=== PATIENT | male | born 1995 | race Caucasian/White ===

== ENCOUNTER 2021-08-28 07:40 | Emergency (ER) | payer SELFPAY ==
[2021-08-28] MEDS ORDERED: LIDOCAINE 1% MPF 5 ML VIAL ONE (09:53)
[2021-08-28] MEDS ORDERED: HYDROCODONE/APAP 10/325 TAB ONE (09:53)
[2021-08-28] MEDS ORDERED: BUPIVACAINE 0.5% PF 10 ML VIAL ONE (09:54)
[2021-08-28] MEDS ORDERED: TETANUS & DIPHTHERIA TOX,ADULT 0.5 ML VIAL ONE (09:54)
--- NOTE | 2021-08-28 11:47 | ER ---
Nurse's Notes [facility] Name: Dewayne Allred Age: 25 yrs Sex: Male : 1995 Arrival Date: 08/28/2021 Time: 07:45 Bed 12 Private MD: Diagnosis: Ingrowing nail-left great toe Presentation: 08/28 08:19 Chief complaint: Patient states: left great toe has had ingrown toe nail X 4 months, iw got worse over past 2 days. Coronavirus screen: At this time, the client does not indicate any symptoms associated with coronavirus-19. Ebola Screen: Patient negative for fever greater than or equal to 101.5 degrees Fahrenheit, and additional compatible Ebola Virus Disease symptoms Patient denies exposure to infectious person. Patient denies travel to an Ebola-affected area in the 21 days before illness onset. No symptoms or risks identified at this time. Initial Sepsis Screen: Does the patient meet any 2 criteria? No. Patient's initial sepsis screen is negative. Does the patient have a suspected source of infection? No. Patient's initial sepsis screen is negative. Risk Assessment: Do you want to hurt yourself or someone else? Patient reports no desire to harm self or others. 08:19 Method Of Arrival: Ambulatory iw 08:19 Acuity: DARRYL 4 iw 09:00 Onset of symptoms was August 28, 2021. iw Triage Assessment: 09:00 General: Appears in no apparent distress. Behavior is calm, cooperative. iw Historical: - Allergies: 08:20 No Known Allergies; iw - Home Meds: 08:20 None [Active]; iw - PMHx: 08:20 None; iw Screenin:00 Abuse screen: Denies threats or abuse. Denies injuries from another. Nutritional iw screening: No deficits noted. Tuberculosis screening: No symptoms or risk factors identified. Fall Risk None identified. Assessment: 09:00 General: Appears in no apparent distress. Behavior is calm, cooperative. Pain: iw Complains of pain in left foot and left first toe. Neuro: Level of Consciousness is awake, alert, obeys commands, Oriented to person, place, time, situation, Moves all extremities. Full function. Cardiovascular: Patient's skin is warm and dry. Derm: Musculoskeletal: Range of motion: intact in all extremities. Vital Signs: 08:19 BP 143 / 84; Pulse 61; Resp 16; Temp 97.4; Pulse Ox 96% on R/A; Weight 136.08 kg; iw Height 6 ft. 1 in. (185.42 cm); 08:19 Body Mass Index 39.58 (136.08 kg, 185.42 cm) ED Course: 07:45 Patient arrived in ED. ds1 08:20 Triage completed. iw 08:20 Dorothea Guerrero RN is Primary Nurse. iw 08:21 Toney Aguila NP is PHCP. pm1 08:21 Ze Gil MD is Attending Physician. pm1 09:00 Patient has correct armband on for positive identification. iw 09:00 Arm band placed on. iw 11:00 Assist provider with nail repair of ingrown nail of left great toe using excision of iw nail. Set up for procedure. Performed by Toney Aguila SENIOR SYSTEMS ARCHITECT Dressed with 4X4s, Neosporin tube gauze Patient tolerated well. 11:46 Efra Healy DPM is Referral Physician. pm1 12:00 Patient did not have IV access during this emergency room visit. ld1 Administered Medications: 09:59 Drug: Tetanus-Diphtheria Toxoid Adult 0.5 ml {Bite Block Maker: [employer]. Exp: iw 02/10/2023. Lot #: [id number]. } Route: IM; Site: right deltoid; 10:15 Follow up: Response: No adverse reaction iw 09:59 Drug: Carlton (HYDROcodone-acetaminophen) 10 mg-325 mg 1 tabs Route: PO; iw 11:38 Follow up: Response: No adverse reaction ld1 11:38 Drug: Lidocaine (1 %) 5 ml {Note: Administered by Toney Aguila NP..} Volume: 5 ml; ld1 Route: Infiltration; Outcome: 11:46 Discharge ordered by . pm1 11:59 Discharged to home ambulatory. ld1 11:59 Condition: stable 11:59 Discharge instructions given to patient, Instructed on discharge instructions, follow up and referral plans. medication usage, Demonstrated understanding of instructions, follow-up care, medications, Prescriptions given X 3. 12:00 Patient left the ED. ld1 Signatures: Gracie Brandt ds1 Dorothea Guerrero RN RN Toney Aguila NP SENIOR SYSTEMS ARCHITECT pm1 Leigh Brown RN RN ld1 Corrections: (The following items were deleted from the chart) 11:38 11:38 Lidocaine (1 %) 5 ml 5 ml Infiltration 5 ml ld1 ld1
--- NOTE | 2021-08-28 11:47 | EDPHYS ---
Physician Documentation [facility] Name: Dewayne Allred Age: 25 yrs Sex: Male : 1995 Arrival Date: 08/28/2021 Time: 07:45 Bed 12 Private MD: ED Physician Ze Gil HPI: 08/28 09:40 This 25 yrs old Male presents to ER via Ambulatory with complaints of Toe Pain. pm1 09:40 The patient presents with pain, that is acute, swelling, tenderness. The complaints pm1 affect the left foot. Context: The problem was sustained at an unknown location, resulted from an unknown cause, the patient is able to ambulate. Onset: The symptoms/episode began/occurred A few months ago, worse the past three days. Modifying factors: The symptoms are alleviated by nothing, the symptoms are aggravated by wearing shoes. Associated signs and symptoms: Pertinent negatives: fever. Severity of symptoms: in the emergency department the symptoms are actually worse. The patient has not experienced similar symptoms in the past. The patient has not recently seen a physician. Historical: - Allergies: 08:20 No Known Allergies; iw - Home Meds: 08:20 None [Active]; iw - PMHx: 08:20 None; iw ROS: 09:40 MS/extremity: Positive for pain, swelling, tenderness, of the left first toe. pm1 09:40 Constitutional: Negative for fever, chills, and weight loss. 09:40 Cardiovascular: Negative for chest pain, palpitations, and edema, Respiratory: Negative for shortness of breath, cough, wheezing, and pleuritic chest pain, Abdomen/GI: Negative for abdominal pain, nausea, vomiting, diarrhea, and constipation. 09:40 Neuro: Negative for headache, weakness, numbness, tingling, and seizure. 09:40 Skin: Positive for swelling, of the left first toe. 09:40 All other systems are negative. Exam: 09:40 Constitutional: This is a well developed, well nourished patient who is awake, alert, pm1 and in no acute distress. Head/Face: Normocephalic, atraumatic. 09:40 Cardiovascular: Exam negative for acute changes, Rate: normal, Rhythm: regular, Pulses: no pulse deficits are appreciated. 09:40 Respiratory: Exam negative for acute changes, respiratory distress, shortness of breath. 09:40 Skin: Appearance: normal except for affected area, granulation of tissue to the left of toe nail left great toe. 09:40 Neuro: Exam negative for acute changes, Orientation: is normal, Mentation: is normal, Motor: is normal, moves all fours. Vital Signs: 08:19 BP 143 / 84; Pulse 61; Resp 16; Temp 97.4; Pulse Ox 96% on R/A; Weight 136.08 kg; iw Height 6 ft. 1 in. (185.42 cm); 08:19 Body Mass Index 39.58 (136.08 kg, 185.42 cm) iw MDM: 08:21 Patient medically screened. pm1 11:45 Data reviewed: vital signs. Data interpreted: Pulse oximetry: on room air is 96 %. pm1 Interpretation: normal. Counseling: I had a detailed discussion with the patient and/or guardian regarding: the historical points, exam findings, and any diagnostic results supporting the discharge/admit diagnosis, the need for outpatient follow up, a construction framer, to return to the emergency department if symptoms worsen or persist or if there are any questions or concerns that arise at home. 11:52 ED course: [place] reviewed. pm1 08/28 09:40 Order name: Dressing - Wound; Complete Time: 11:39 pm1 08/28 09:40 Order name: Gloves, Sterile; Complete Time: 11:38 pm1 08/28 09:40 Order name: Setup Suture Tray; Complete Time: 11:38 pm1 08/28 11:45 Order name: Post-op shoe; Complete Time: 11:57 pm1 Administered Medications: 09:59 Drug: Tetanus-Diphtheria Toxoid Adult 0.5 ml {Traffic Sign Erection Supervisor: [employer]. Exp: iw 02/10/2023. Lot #: [id number]. } Route: IM; Site: right deltoid; 10:15 Follow up: Response: No adverse reaction iw 09:59 Drug: Beatrice (HYDROcodone-acetaminophen) 10 mg-325 mg 1 tabs Route: PO; iw 11:38 Follow up: Response: No adverse reaction ld1 11:38 Drug: Lidocaine (1 %) 5 ml {Note: Administered by Toney Aguila SOIL SAMPLER..} Volume: 5 ml; ld1 Route: Infiltration; Disposition: 08/29 08:22 Co-signature as Attending Physician, Ze Gil MD I agree with the assessment and chase plan of care. Disposition Summary: 08/28/21 11:46 Discharge Ordered Location: Home pm1 Problem: new pm1 Symptoms: have improved pm1 Condition: Stable pm1 Diagnosis - Ingrowing nail - left great toe pm1 Followup: pm1 - With: Emergency Department - When: As needed - Reason: Worsening of condition Followup: pm1 - With: Private Physician - When: 2 - 3 days - Reason: Recheck today's complaints, Continuance of care, Re-evaluation by your physician Followup: pm1 - With: Efra Healy DPM - When: 2 - 3 days - Reason: Recheck today's complaints, Continuance of care, Re-evaluation by your physician Discharge Instructions: - Discharge Summary Sheet pm1 - Ingrown Toenail pm1 - Fingernail or Toenail Removal, Adult pm1 Forms: - Medication Reconciliation Form pm1 - Thank You Letter pm1 - Antibiotic Education pm1 - Prescription Opioid Use pm1 - Work release form pm1 Prescriptions: - acetaminophen-codeine 300-15 mg Oral tablet - take 2 tablet by ORAL route every 6 hours As needed as needed; 20 tablet; pm1 Refills: 0, Product Selection Permitted - Cephalexin 500 mg Oral Capsule - take 1 capsule by ORAL route every 6 hours for 10 days; 40 capsule; Refills: 0, pm1 Product Selection Permitted - Bactrim DS 800-160 mg Oral Tablet - take 1 tablet by ORAL route every 12 hours for 10 days; 20 tablet; Refills: 0, pm1 Product Selection Permitted Signatures: Ze Gil MD MD cha Williams, Irene, Toney Pierre RN, NP SOIL SAMPLER pm1 Leigh Brown RN RN ld1
[2021-08-28 12:07] VITALS: BP 143/84; TEMP 97.4; O2SAT 96
== END 2021-08-28 12:00 | disposition home or self-care (01) ==
LOC: ER 07:40
PROC: 0HBRXZZ Excision of Toe Nail, External Approach (ICD-10-PCS; principal; 2021-08-28)
DX: L60.0 Ingrowing nail (principal); Z23 Encounter for immunization
CPT/HCPCS: 90471; 90714; 99283

== ENCOUNTER 2023-08-24 18:09 | Emergency (ER) | payer SELFPAY ==
[2023-08-24 19:34] LABS: SARS-COV-2 RT PCR NEGATIVE (NEGATIVE)
--- NOTE | 2023-08-24 19:49 | ER ---
Nurse's Notes [facility] Name: Dewayne Allred Age: 27 yrs Sex: Male : 1995 Arrival Date: 08/24/2023 Time: 18:09 Bed IW2 Private MD: Diagnosis: Influenza due to identified novel influenza A virus-flu b Presentation: 08/24 18:30 Chief complaint: Patient states: fever, chills, headache, cough, congestion x 4 days. ko1 Coronavirus screen: chills, congestion, cough unrelated to allergies, headache, Client presents with at least one sign or symptom that may indicate coronavirus-19. Standard/surgical mask placed on the client. Ebola Screen: No symptoms or risks identified at this time. Initial Sepsis Screen: Does the patient meet any 2 criteria? No. Patient's initial sepsis screen is negative. Does the patient have a suspected source of infection? No. Patient's initial sepsis screen is negative. Risk Assessment: Do you want to hurt yourself or someone else? Patient reports no desire to harm self or others. Onset of symptoms is unknown. 18:30 Method Of Arrival: Ambulatory ko1 18:30 Acuity: DARRYL 4 ko1 Triage Assessment: 18:31 General: Appears ill, Behavior is calm, cooperative, appropriate for age. Pain: ko1 Complains of pain in headache. Historical: - Allergies: 18:31 No Known Allergies; ko1 - PMHx: 18:31 None; ko1 - Immunization history:: Adult Immunizations up to date. - Social history:: Smoking status: Patient denies any tobacco usage or history of. Screenin:52 [facility] ED Fall Risk Assessment (Adult) History of falling in the last 3 months, cm10 including since admission No falls in past 3 months (0 pts) Confusion or Disorientation No (0 pts) Intoxicated or Sedated No (0 pts) Impaired Gait No (0 pts) Mobility Assist Device Used No (0 pt) Altered Elimination No (0 pt) Score/Fall Risk Level 0 - 2 = Low Risk Oriented to surroundings, Maintained a safe environment, Hourly rounding (assess needs \T\ fall precautionary measures) done. Abuse screen: Denies threats or abuse. Denies injuries from another. Nutritional screening: No deficits noted. Tuberculosis screening: No symptoms or risk factors identified. Vital Signs: 18:30 BP 146 / 91; Pulse 98; Resp 18; Temp 97.7; Pulse Ox 99% ; ko1 ED Course: 18:18 Patient arrived in ED. mg5 18:19 [facility] Head[facility]C [facility] kb 18:19 Zohaib Javed MD is Attending Physician. kb 18:31 Triage completed. ko1 18:31 Arm band placed on left wrist. Patient placed in waiting room, Patient notified of wait ko1 time. 18:42 Mariah Davalos, RN is Primary Nurse. ko1 18:50 COVID-19/FLU A+B Sent. ll1 19:52 Patient has correct armband on for positive identification. Provided Education on: cm10 Follow-up plan of care. . 19:52 No provider procedures requiring assistance completed. Patient did not have IV access cm10 during this emergency room visit. Administered Medications: No medications were administered Medication: 19:52 VIS not applicable for this client. cm10 Outcome: 19:48 Discharge ordered by MD. kb 19:52 Discharged to home ambulatory, cm10 19:52 Condition: good 19:52 Discharge instructions given to patient, Instructed on discharge instructions, follow up and referral plans. Demonstrated understanding of instructions, follow-up care, 19:55 Patient left the ED. cm10 Signatures: Chandrika Headley FNP-C FNP-Ckb Lewis, Lynsay RN RN 1 Mariah Davalos, RN RN koBambi Restrepo RN RN cm10 Cristine Lopez mg5
--- NOTE | 2023-08-24 19:49 | EDPHYS ---
Physician Documentation [facility] Name: Dewyane Allred Age: 27 yrs Sex: Male : 1995 Arrival Date: 08/24/2023 Time: 18:09 Bed IW2 Private MD: ED Physician Zohaib Javed HPI: 08/24 20:11 This 27 yrs old Male presents to ER via Ambulatory with complaints of Flu Symptoms. kb 20:12 Patient is a 27-year-old male with no medical history who presents for fever, cough, kb congestion, chills and body aches for 4 days.. Historical: - Allergies: 18:31 No Known Allergies; ko1 - PMHx: 18:31 None; ko1 - Immunization history:: Adult Immunizations up to date. - Social history:: Smoking status: Patient denies any tobacco usage or history of. ROS: 20:12 Abdomen/GI: Negative for abdominal pain, nausea, vomiting, diarrhea, and constipation, kb 20:12 Constitutional: Positive for body aches, chills, fever, malaise, 20:12 ENT: Positive for rhinorrhea, sinus congestion, 20:12 Respiratory: Positive for cough, 20:12 Neuro: Positive for headache, 20:12 All other systems are negative, Exam: 20:12 Constitutional: This is a well developed, well nourished patient who is awake, alert, kb and in no acute distress. Head/Face: Normocephalic, atraumatic. ENT: Moist Mucous membranes Cardiovascular: Regular rate Respiratory: Respirations even and unlabored. No increased work of breathing. Talking in full sentences Skin: Warm, dry with normal turgor. Normal color. MS/ Extremity: Pulses equal, no cyanosis. Neurovascular intact. Full, normal range of motion. Neuro: Awake and alert, GCS 15, oriented to person, place, time, and situation. Moves all extremities. Normal gait. Vital Signs: 18:30 BP 146 / 91; Pulse 98; Resp 18; Temp 97.7; Pulse Ox 99% ; ko1 MDM: 18:19 Patient medically screened. kb 20:12 Differential Diagnosis: Bronchitis Influenza Upper Respiratory Infection Pneumonia kb Other COVID. Data reviewed: vital signs, nurses notes. Test considered but Not performed: X-ray: Chest x-ray considered but lungs clear bilaterally, respirations even and unlabored and oxygen saturation 99% on room air.. Counseling: I had a detailed discussion with the patient and/or guardian regarding the historical points, exam findings, and any diagnostic results supporting the discharge/admit diagnosis, lab results, the need for outpatient follow up, a family practitioner, to return to the emergency department if symptoms worsen or persist or if there are any questions or concerns that arise at home. 08/24 18:28 Order name: COVID-19/FLU A+B; Complete Time: 19:48 kb Administered Medications: No medications were administered Disposition Summary: 08/24/23 19:48 Discharge Ordered Notes: Location: Home kb Condition: Stable kb Diagnosis - Influenza due to identified novel influenza A virus - flu b kb Followup: kb - With: Emergency Department - When: As needed - Reason: Worsening of condition Followup: kb - With: Private Physician - When: 2 - 3 days - Reason: Recheck today's complaints, Continuance of care, Re-evaluation by your physician Discharge Instructions: - Discharge Summary Sheet kb - Influenza, Adult, [id number] kb Forms: - Medication Reconciliation Form kb - Thank You Letter kb - Antibiotic Education kb - Prescription Opioid Use kb - Patient Portal Instructions kb - Leadership Thank You Letter kb Signatures: Dispatcher [employer] Chandrika Hayes, HEALTH OUTREACH WORKER-C HEALTH OUTREACH WORKER-Mariah Almaraz, RN RN ko1
[2023-08-24 20:00] VITALS: BP 146/91; TEMP 97.7; O2SAT 99
[2023-08-24] MEDS ORDERED: CEFTRIAXONE 1000 MG/VIAL ONE (21:20)
[2023-08-24] MEDS ORDERED: NA CHLORIDE 0.9% 50 ML ONE (21:20)
== END 2023-08-24 19:55 | disposition home or self-care (01) ==
LOC: ER 18:09
DX: J10.1 Influenza due to other identified influenza virus with other respiratory manifestations (principal); Z11.52 Encounter for screening for COVID-19
CPT/HCPCS: 0240U; 99283; J0696

== ENCOUNTER 2024-12-05 16:13 | Emergency (ER) | payer SELFPAY ==
--- NOTE | 2024-12-05 17:39 | RAD REPORT ---
EXAM: Hand Right 3 View HISTORY: PAIN COMPARISON: None IMPRESSION: Fourth metacarpal mid diaphyseal fracture which is mildly displaced and dorsally angulated. No other fractures identified.
--- NOTE | 2024-12-05 19:49 | ER ---
Nurse's Notes [facility] Name: Dewayne Allred Age: 29 yrs Sex: Male : 1995 Arrival Date: 12/05/2024 Time: 16:13 Bed 9 Private MD: Diagnosis: Displaced fracture of shaft of fourth metacarpal bone, right hand, initial encounter for closed fracture Presentation: 12/05 16:48 Chief complaint: Patient states: fell backwards on right hand , he tried to catch iw himself and his hand folded over , happened about 30 minutes ago. Coronavirus screen: At this time, the client does not indicate any symptoms associated with coronavirus-19. Risk Assessment: Do you want to hurt yourself or someone else? Patient reports no desire to harm self or others. 16:48 Method Of Arrival: Ambulatory iw 16:48 Acuity: DARRYL 4 iw Historical: - Allergies: 16:49 No Known Allergies; iw - Home Meds: 16:49 None [Active]; iw - PMHx: 16:49 None; iw - PSHx: 16:49 None; iw - Immunization history:: Adult Immunizations not up to date. - Infectious Disease History:: Denies. - Social history:: Smoking status: Patient denies any tobacco usage or history of. Screenin:15 [facility] ED Fall Risk Assessment (Adult) History of falling in the last 3 months, br2 including since admission No falls in past 3 months (0 pts) Confusion or Disorientation No (0 pts) Intoxicated or Sedated No (0 pts) Impaired Gait No (0 pts) Mobility Assist Device Used No (0 pt) Altered Elimination No (0 pt) Score/Fall Risk Level 0 - 2 = Low Risk. Abuse screen: Denies threats or abuse. Denies injuries from another. Nutritional screening: No deficits noted. Nutritional screening: No deficits noted. Tuberculosis screening: No symptoms or risk factors identified. Assessment: 19:15 Reassessment: No changes from previously documented assessment. Patient and/or family br2 updated on plan of care and expected duration. Pain level reassessed. Patient is alert, oriented x 3, equal unlabored respirations, skin warm/dry/pink. 19:15 Musculoskeletal: Capillary refill < 3 seconds, Range of motion: Swelling present in br2 right hand Reports pain in right hand. Vital Signs: 16:48 BP 141 / 89; Pulse 88; Resp 18; Temp 97.6; Pulse Ox 98% ; Weight 129.27 kg; Height 6 iw ft. 1 in. ; Pain 7/10; 16:48 Body Mass Index 37.60 (129.27 kg, 185.42 cm) iw 16:48 Pain Scale: Adult ED Course: 16:14 Patient arrived in ED. im 16:40 Ze Henson PA is PHCP. cp 16:40 Ze Gil MD is Attending Physician. cp 16:49 Triage completed. iw 17:31 XRAY Hand RIGHT 3 View In Process Unspecified. EDMS 19:15 Patient has correct armband on for positive identification. Bed in low position. Call br2 light in reach. Side rails up X 1. Provided Education on: PLAN OF CARE. 20:28 Awilda Nathan, KAYLEN is Primary Nurse. br2 21:00 Velcro wrist splint applied to right wrist. br2 21:08 No provider procedures requiring assistance completed. Patient did not have IV access br2 during this emergency room visit. Administered Medications: 20:36 Drug: Ibuprofen PO 800 mg PO once Route: PO; br2 Outcome: 19:49 Discharge ordered by MD. cp 21:08 Discharged to home ambulatory, br2 21:08 Condition: stable 21:08 Discharge instructions given to patient, Instructed on discharge instructions, follow up and referral plans. Demonstrated understanding of instructions, follow-up care, medications, Prescriptions given X 1, 21:15 Patient left the ED. br2 Signatures: Dispatcher [employer] Dorothea Saul RN RN Ze Henson PA PA cp Mendoza, Itzel Awilda Nathan, KAYLEN RN br2
--- NOTE | 2024-12-05 19:49 | EDPHYS ---
Physician Documentation [facility] Name: Dewayne Allred Age: 29 yrs Sex: Male : 1995 Arrival Date: 12/05/2024 Time: 16:13 Bed 9 Private MD: ED Physician Ze Gil HPI: 12/05 17:00 This 29 yrs old Male presents to ER via Ambulatory with complaints of Hand Injury - cp right. 17:00 The patient or guardian reports injury, pain, swelling, tenderness. The complaints cp affect the dorsal side of right hand. Context: resulted from a fall. 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 cp Historical: - Allergies: 16:49 No Known Allergies; iw - Home Meds: 16:49 None [Active]; iw - PMHx: 16:49 None; iw - PSHx: 16:49 None; iw - Immunization history:: Adult Immunizations not up to date. - Infectious Disease History:: Denies. - Social history:: Smoking status: Patient denies any tobacco usage or history of. ROS: 17:05 MS/extremity: Positive for deformity, pain, swelling, tenderness, of the dorsal side of cp right hand, Negative for paresthesias, 17:05 Constitutional: history per hpi cp 17:05 Cardiovascular: Negative for chest pain, palpitations, 17:05 Respiratory: Negative for cough, shortness of breath, wheezing, 17:05 Abdomen/GI: Negative for abdominal pain, vomiting, diarrhea, constipation, 17:05 Neuro: Negative for numbness, weakness, 17:05 All other systems are negative, Exam: 17:15 Head/Face: Normocephalic, atraumatic. cp 17:15 Constitutional: The patient appears in no acute distress, alert, awake, comfortable, non-toxic, well developed, well nourished, 17:15 Musculoskeletal/extremity: Extremities: noted in the right hand: dorsal side swelling, pain and tenderness of metacarpals, Perfusion: the extremity is normally perfused throughout, the right hand Sensation intact. overlying skin intact. Vital Signs: 16:48 BP 141 / 89; Pulse 88; Resp 18; Temp 97.6; Pulse Ox 98% ; Weight 129.27 kg; Height 6 iw ft. 1 in. ; Pain 7/10; 16:48 Body Mass Index 37.60 (129.27 kg, 185.42 cm) iw 16:48 Pain Scale: Adult iw MDM: 16:50 Medical Screening Exam initiated cp 19:48 Data reviewed: vital signs, nurses notes, radiologic studies, plain films. cp 12/05 16:52 Order name: XRAY Hand RIGHT 3 View; Complete Time: 19:11 cp 12/05 19:11 Interpretation: Report reviewed. cp 12/05 17:48 Order name: Splint - Ulnar Gutter cp Administered Medications: 20:36 Drug: Ibuprofen PO 800 mg PO once Route: PO; br2 Disposition Summary: 12/05/24 19:49 Discharge Ordered Notes: Location: Home cp Problem: new cp Symptoms: have improved cp Condition: Stable cp Diagnosis - Displaced fracture of shaft of fourth metacarpal bone, right hand, initial cp encounter for closed fracture Followup: cp - With: Private Physician - When: DR Roberto Jones, hand/wrist surgeon - Reason: hand fracture Discharge Instructions: - Discharge Summary Sheet cp - Metacarpal Fracture cp Forms: - Medication Reconciliation Form cp - Antibiotic Education cp - Prescription Opioid Use cp - Patient Portal Instructions cp - Leadership Thank You Letter cp Prescriptions: - Anaprox DS 550 mg Oral Tablet - take 1 tablet ORAL route every 12 hours As needed; 20 tablet; Refills: 0, cp Product Selection Permitted Signatures: Dispatcher [employer] Dorothea Saul, RN RN Ze Antony PA PA cp Awilda Nathan RN RN br2
[2024-12-05] MEDS ORDERED: IBUPROFEN 400 MG TAB ONE (20:29)
[2024-12-05 21:18] VITALS: BP 141/89; TEMP 97.6; O2SAT 98
== END 2024-12-05 21:15 | disposition home or self-care (01) ==
LOC: ER 16:13
DX: S62.324A Displaced fracture of shaft of fourth metacarpal bone, right hand, initial encounter for closed fracture (principal); W18.30XA Fall on same level, unspecified, initial encounter
CPT/HCPCS: 99283